=== PATIENT | male | born 1960 | race Caucasian/White ===

== ENCOUNTER → 2016-10-21 | Outpatient (CLI) | payer OTHER | LOC: MHCPAIN 11:55 | DX: G89.29 Other chronic pain (principal); M54.12 Radiculopathy, cervical region; M47.812 Spondylosis without myelopathy or radiculopathy, cervical region; R51 Headache | CPT/HCPCS: G0463 ==

== ENCOUNTER → 2016-10-23 | Outpatient (CLI) | payer OTHER | LOC: MHCPAIN 10:37 | DX: M50.323 Other cervical disc degeneration at C6-C7 level (principal) | CPT/HCPCS: J1100; Q9967 ==

== ENCOUNTER → 2016-11-21 | Outpatient (CLI) | payer OTHER | LOC: MHCPAIN 07:50 | DX: G89.29 Other chronic pain (principal); M50.90 Cervical disc disorder, unspecified, unspecified cervical region; M54.12 Radiculopathy, cervical region; M54.81 Occipital neuralgia; R51 Headache | CPT/HCPCS: G0463 ==

== ENCOUNTER → 2018-03-03 | Outpatient (CLI) | payer OTHER | LOC: MHCPAIN 14:18 | DX: G89.29 Other chronic pain (principal); M50.90 Cervical disc disorder, unspecified, unspecified cervical region; M54.12 Radiculopathy, cervical region; M54.81 Occipital neuralgia; R51 Headache | CPT/HCPCS: G0463 ==

== ENCOUNTER → 2019-06-07 | Outpatient (CLI) | payer OTHER | LOC: MHCPAIN 14:05 | DX: M47.817 Spondylosis without myelopathy or radiculopathy, lumbosacral region (principal); M54.16 Radiculopathy, lumbar region | CPT/HCPCS: G0463 ==

== ENCOUNTER → 2019-06-16 | Outpatient (CLI) | payer OTHER | LOC: MHCPAIN 13:32 | DX: M54.5 Low back pain (principal); M53.3 Sacrococcygeal disorders, not elsewhere classified | CPT/HCPCS: J1100; Q9967 ==

== ENCOUNTER → 2019-06-28 | Outpatient (CLI) | payer OTHER | LOC: MHCPAIN 07:54 | DX: M53.3 Sacrococcygeal disorders, not elsewhere classified (principal); M47.817 Spondylosis without myelopathy or radiculopathy, lumbosacral region | CPT/HCPCS: G0463 ==

== ENCOUNTER → 2019-07-07 | Outpatient (CLI) | payer OTHER | LOC: MHCPAIN 14:55 | DX: M54.5 Low back pain (principal); M53.3 Sacrococcygeal disorders, not elsewhere classified ==

== ENCOUNTER → 2019-07-12 | Outpatient (CLI) | payer OTHER | LOC: MHCPAIN 14:48 | DX: M53.3 Sacrococcygeal disorders, not elsewhere classified (principal); M47.817 Spondylosis without myelopathy or radiculopathy, lumbosacral region; F17.210 Nicotine dependence, cigarettes, uncomplicated | CPT/HCPCS: G0463 ==

== ENCOUNTER → 2019-07-28 | Outpatient (CLI) | payer OTHER | LOC: MHCPAIN 08:07 | DX: M54.5 Low back pain (principal) ==

== ENCOUNTER → 2019-10-31 | Outpatient (CLI) | payer OTHER | LOC: MHCPAIN 12:03 | DX: M47.817 Spondylosis without myelopathy or radiculopathy, lumbosacral region (principal); M54.5 Low back pain; M53.3 Sacrococcygeal disorders, not elsewhere classified; G89.29 Other chronic pain | CPT/HCPCS: G0463; J1100; J2250; J3010 ==

== ENCOUNTER → 2019-11-10 | Outpatient (CLI) | payer OTHER | LOC: MHCPAIN 15:01 | DX: M47.817 Spondylosis without myelopathy or radiculopathy, lumbosacral region (principal); M54.5 Low back pain; M53.3 Sacrococcygeal disorders, not elsewhere classified; G89.29 Other chronic pain | CPT/HCPCS: G0463 ==

== ENCOUNTER → 2020-03-13 | Outpatient (CLI) | payer OTHER | LOC: MHCPAIN 09:36 | DX: M47.817 Spondylosis without myelopathy or radiculopathy, lumbosacral region (principal); M54.5 Low back pain; M50.90 Cervical disc disorder, unspecified, unspecified cervical region; M54.12 Radiculopathy, cervical region; G89.29 Other chronic pain; R51.9 Headache, unspecified | CPT/HCPCS: G0463 ==

== ENCOUNTER → 2020-04-02 | Outpatient (CLI) | payer OTHER | LOC: MHCPAIN 08:29 | DX: M47.812 Spondylosis without myelopathy or radiculopathy, cervical region (principal); M54.2 Cervicalgia; M54.12 Radiculopathy, cervical region | CPT/HCPCS: J0461; J1100; Q9967 ==

== ENCOUNTER → 2020-04-11 | Outpatient (CLI) | payer OTHER | LOC: MHCPAIN 11:17 | DX: M79.18 Myalgia, other site (principal); M54.2 Cervicalgia; M47.812 Spondylosis without myelopathy or radiculopathy, cervical region; G89.29 Other chronic pain | CPT/HCPCS: G0463; J1040 ==

== ENCOUNTER → 2020-04-30 | Outpatient (CLI) | payer OTHER | LOC: MHCPAIN 08:49 | DX: M47.817 Spondylosis without myelopathy or radiculopathy, lumbosacral region (principal); M54.5 Low back pain; M53.3 Sacrococcygeal disorders, not elsewhere classified; G89.29 Other chronic pain | CPT/HCPCS: G0463 ==

== ENCOUNTER → 2020-05-17 | Outpatient (CLI) | payer OTHER | LOC: MHCPAIN 08:03 | DX: M47.817 Spondylosis without myelopathy or radiculopathy, lumbosacral region (principal); M54.5 Low back pain | CPT/HCPCS: J2250; J3010 ==

== ENCOUNTER → 2020-11-05 | Outpatient (CLI) | payer OTHER | LOC: COL.RAD 06:47 | DX: M25.551 Pain in right hip (principal); M25.552 Pain in left hip; M25.511 Pain in right shoulder; M25.512 Pain in left shoulder ==